=== PATIENT | female | born 1935 | race Caucasian/White ===

== ENCOUNTER → 2018-01-29 | Outpatient (CLI) | payer OTHER ==
[~2018-01-29] MED LIST: ASPI81CH PO; CITRICAL; GINKGO PO; LISHYD1012 PO; POTCHL20ER PO
== END ==
LOC: LAB SHORT 14:18 → LAB SRC 14:18
DX: R31.9 Hematuria, unspecified (principal)
CPT/HCPCS: 87086

== ENCOUNTER 2018-11-23 10:43 | Inpatient (IN) | payer OTHER ==
[~2018-11-23] VITALS: Ht 152.4 cm; Wt 74.7 kg
[2018-11-23] MEDS ORDERED: Prinivil10 MG PO (13:33)
[2018-11-23] MEDS ORDERED: MEMA10 PO (13:33)
[2018-11-23 13:51] LABS: BASOPHILS ABSOLUTE AUTO 0.02 K/mm3 (0.00-0.23); BASOPHILS PERCENT AUTO 0 % (0-2); EOSINOPHILS ABSOLUTE AUTO 0.03 K/mm3 (0.00-0.68); EOSINOPHILS PERCENT AUTO 0 % (0-6); Hematocrit 42.5 % (33.0-51.0); IMMATURE GRAN ABSOLUTE AUTO 0.06 K/mm3 (0.00-0.10); IMMATURE GRAN PERCENT AUTO 0 % (0-1); LYMPHOCYTES ABSOLUTE AUTO 1.09 K/mm3 (0.84-5.20); LYMPHOCYTES PERCENT AUTO 8 % (21-46); MONOCYTES ABSOLUTE AUTO 0.63 K/mm3 (0.16-1.47); MONOCYTES PERCENT AUTO 5 % (4-13); Mean Corpuscular HGB Conc 32.9 g/dL (31.5-36.5); Mean Corpuscular Volume 94 fL (80-100); Mean Platelet Volume 9.8 fL (9.1-12.4); NEUTROPHILS ABSOLUTE AUTO 11.66 K/mm3 (1.96-9.15); NEUTROPHILS PERCENT AUTO 87 % (41-73); Platelet Count 263 K/mm3 (150-400); RDW Coefficient Variation 12.4 % (11.7-14.2); RDW Standard Deviation 43.3 fL (35.1-46.3); Red Blood Cell Count 4.51 M/mm3 (3.80-5.20); White Blood Cell Count 13.49 K/mm3 (4.00-11.30)
[2018-11-23 14:42] LABS: Source, Urine Voided
[2018-11-23 14:45] LABS: Bilirubin, Urine Neg (Neg); Blood, Urine Neg (Neg); Glucose Qualitative, Urine Neg (Neg); Ketones, Urine 2+ (Neg); Leukocyte Esterase, Urine Neg (Neg); Nitrite, Urine Neg (Neg); Protein, Urine Neg (Neg); Specific Gravity, Urine 1.015 (1.003-1.022); Urobilinogen, Urine NORM (Normal); pH, Urine 6.5 (5.0-8.0)
[2018-11-23 14:50] LABS: Appearance, Urine Clear (Clear); Color, Urine Yellow (P-Yellow)
[2018-11-23 16:18] LABS: International Normalized Ratio 0.97; Prothrombin Time Results 10.3 Sec (9.7-11.5)
[2018-11-23 16:25] LABS: Alanine Aminotransfer (ALT/SGP 21 U/L (12-78); Albumin, Blood 3.6 g/dL (3.4-5.0); Albumin/Globulin Ratio 1.1 (0.8-1.8); Alk Phos 62 U/L (50-136); Anion Gap 8 mmol/L (6-16); Aspartate Aminotrans (AST/SGOT 26 U/L (12-37); Bilirubin, Total 0.9 mg/dL (0.1-1.0); Blood Urea Nitrogen 16 mg/dL (8-24); Bun/Creatinine Ratio 23.6 (12.0-20.0); CO2, Blood 25 mmol/L (21-32); Calcium, Blood 8.2 mg/dL (8.5-10.1); Chloride, Blood 101 mmol/L (98-108); Creatinine, Blood 0.68 mg/dL (0.40-1.00); Globulin, Blood 3.4 g/dL (2.2-4.0); Glomerular Filtration Rate >60 (60-); Glucose, Blood 87 mg/dL (70-99); Potassium, Blood 4.2 mmol/L (3.5-5.5); Sodium, Blood 134 mmol/L (136-145)
--- NOTE | 2018-11-23 17:16 | NUR ---
PT ARRIVED TO THE ROOM AT APPROXIMATELY 1700. PT ALERT AND ORIENTED. FAMILY AT THE BEDSIDE. PT REPORTS PAIN IS MANAGED. ZOFRAN GIVEN FOR NAUSEA BY CLARITA ARITA. WILL CONTINUE TO MONITOR.
--- NOTE | 2018-11-23 19:32 | NUR ---
SHIFT SUMMARY PT REPORTS PAIN IS TOLERABLE WHILE AT REST. PT ALERT AND ORIENTED. FAMILY PRESENT AT BEDSIDE. VSS. REPORT GIVEN TO ESTELLA ARITA.
[2018-11-24 04:24] LABS: BASOPHILS ABSOLUTE AUTO 0.05 K/mm3 (0.00-0.23); BASOPHILS PERCENT AUTO 0 % (0-2); EOSINOPHILS ABSOLUTE AUTO 0.28 K/mm3 (0.00-0.68); EOSINOPHILS PERCENT AUTO 3 % (0-6); Hematocrit 40.6 % (33.0-51.0); Hemoglobin 13.7 g/dL (11.5-16.0); IMMATURE GRAN ABSOLUTE AUTO 0.02 K/mm3 (0.00-0.10); IMMATURE GRAN PERCENT AUTO 0 % (0-1); LYMPHOCYTES ABSOLUTE AUTO 1.04 K/mm3 (0.84-5.20); LYMPHOCYTES PERCENT AUTO 9 % (21-46); MONOCYTES ABSOLUTE AUTO 0.78 K/mm3 (0.16-1.47); MONOCYTES PERCENT AUTO 7 % (4-13); Mean Corpuscular HGB 30.7 pg (26.0-34.0); Mean Corpuscular HGB Conc 33.7 g/dL (31.5-36.5); Mean Platelet Volume 9.4 fL (9.1-12.4); NEUTROPHILS ABSOLUTE AUTO 9.07 K/mm3 (1.96-9.15); NEUTROPHILS PERCENT AUTO 81 % (41-73); Platelet Count 239 K/mm3 (150-400); RDW Coefficient Variation 12.5 % (11.7-14.2); RDW Standard Deviation 41.1 fL (35.1-46.3); Red Blood Cell Count 4.46 M/mm3 (3.80-5.20); White Blood Cell Count 11.24 K/mm3 (4.00-11.30)
[2018-11-24 04:32] LABS: Mean Corpuscular Volume 91 fL (80-100)
[2018-11-24 04:47] LABS: Anion Gap 6 mmol/L (6-16); Blood Urea Nitrogen 12 mg/dL (8-24); Bun/Creatinine Ratio 17.3 (12.0-20.0); CO2, Blood 26 mmol/L (21-32); Calcium, Blood 7.8 mg/dL (8.5-10.1); Chloride, Blood 102 mmol/L (98-108); Creatinine, Blood 0.69 mg/dL (0.40-1.00); Glomerular Filtration Rate >60 (60-); Glucose, Blood 102 mg/dL (70-99); Sodium, Blood 134 mmol/L (136-145)
--- NOTE | 2018-11-24 06:18 | NUR ---
LYING IN SEMI FOWLERS WITH EYES CLOSED. HAS RESTED WELL SINCE ADMIT. HAS BEEN TREATED FOR PAIN X3 THIS SHIFT. RESPIRATIONS EVEN AND UNLABORED AT THIS TIME. DENIES PAIN, DISCOMFORT, OR FURTHER NEEDS AT THIS TIME. SAFETY MEASURES IN PLACE. WILL GIVE HAND OFF TO ONCOMING SHIFT USING SBAR.
--- NOTE | 2018-11-24 09:48 | NUR ---
"CUTTING AND CREASING PRESS OPERATOR | PRE-OP IN ROOM VSS. A/O, to person, place, partial situation (knew she was having surgery, not sure what part). Family here at bedside. Blood consent complete. Surgery consent and pink sheet in chart. SCDs on. CASSIUS hose on. Patient denies dentures, hearing aides, contacts. IV runs to gravity without issue. Vanco running per order. Blue hat on. Consent wristband placed, verified procedure with family. Plan and H/P from Dr. Sanders in [facility]. Dr. Mariscal spoke with patient and consented the patient (via family member and verbal confirmation with patient). Clinda and TXA on IV pole ready for OR team use. Marry ARITA saw patient, patient taken to OR."
--- NOTE | 2018-11-24 11:05 | NUR ---
11/24/18 1105 Hiren Redmond PT HAD PEARSON CATH IN PLACE PRIOR TO ARRIVAL TO OR.
--- NOTE | 2018-11-24 14:15 | NUR ---
PT ARRIVED BACK TO HER ROOM FROM PACU, AT APPROXIMATELY 1255. PT SLEEPING BUT AWAKENS WHEN SPOKEN TO. VSS. WILL CONTINUE TO MONITOR.
--- NOTE | 2018-11-24 17:53 | NUR ---
SHIFT SUMMARY PT HAD SURGERY TODAY WITH DR. WEAVER. PT HAS BEEN DROWSY POST OP AND HAS NAPPED. PT DENIES PAIN SINCE SURGERY. SHE IS ABLE TO ROLL/REPOSITION WITH 1 PERSON ASSIST. PT WORKED WITH THERAPY AND WAS ABLE TO SIT AT THE EDGE OF THE BED. CATHETER REMOVED IN PACU, PT HAS CLEAN ATTENDS IN PLACE, BLADDER SCAN SHOWED 217ML OF URINE IN HER BLADDER. PT REMAINS MILDLY CONFUSED, SHE IS ORIENTED X3. FAMILY HAS BEEN AT THE BEDSIDE POST-OP. VSS. WILL MONITOR UNTIL REPORT TO ONCOMING RN.
[2018-11-25 04:54] LABS: BASOPHILS ABSOLUTE AUTO 0.02 K/mm3 (0.00-0.23); BASOPHILS PERCENT AUTO 0 % (0-2); EOSINOPHILS ABSOLUTE AUTO 0.13 K/mm3 (0.00-0.68); EOSINOPHILS PERCENT AUTO 1 % (0-6); Hematocrit 32.3 % (33.0-51.0); Hemoglobin 10.9 g/dL (11.5-16.0); IMMATURE GRAN ABSOLUTE AUTO 0.07 K/mm3 (0.00-0.10); IMMATURE GRAN PERCENT AUTO 1 % (0-1); LYMPHOCYTES ABSOLUTE AUTO 0.74 K/mm3 (0.84-5.20); LYMPHOCYTES PERCENT AUTO 6 % (21-46); MONOCYTES ABSOLUTE AUTO 1.13 K/mm3 (0.16-1.47); MONOCYTES PERCENT AUTO 8 % (4-13); Mean Corpuscular HGB 30.9 pg (26.0-34.0); Mean Corpuscular HGB Conc 33.7 g/dL (31.5-36.5); Mean Corpuscular Volume 92 fL (80-100); Mean Platelet Volume 9.9 fL (9.1-12.4); NEUTROPHILS PERCENT AUTO 85 % (41-73); Platelet Count 194 K/mm3 (150-400); RDW Coefficient Variation 12.8 % (11.7-14.2); RDW Standard Deviation 42.3 fL (35.1-46.3); Red Blood Cell Count 3.53 M/mm3 (3.80-5.20); White Blood Cell Count 13.39 K/mm3 (4.00-11.30)
[2018-11-25 05:12] LABS: Anion Gap 6 mmol/L (6-16); Blood Urea Nitrogen 18 mg/dL (8-24); Bun/Creatinine Ratio 24.6 (12.0-20.0); CO2, Blood 24 mmol/L (21-32); Chloride, Blood 102 mmol/L (98-108); Creatinine, Blood 0.73 mg/dL (0.40-1.00); Glomerular Filtration Rate >60 (60-); Glucose, Blood 134 mg/dL (70-99); Magnesium, Blood 1.9 mg/dL (1.6-2.4); Potassium, Blood 4.6 mmol/L (3.5-5.5); Sodium, Blood 132 mmol/L (136-145)
--- NOTE | 2018-11-25 05:51 | NUR ---
SHIFT SUMMARY SITTING IN CHAIR AT BEDSIDE WITH EYES CLOSED. GOT OUT OF BED TO BSC TO URINATE WITH MAX ASSIST. 300ML OUTOUT NOTED. LIEN LIFT USED TO TRANSFER TO [facility]. RESPIRATIONS EVEN AND UNLABORED AT THIS TIME. DENIES PAIN, DISCOMFORT, OR FURTHER NEEDS AT THIS TIME. SAFETY MEASURES IN PLACE. WILL GIVE HAND OFF TO ONCOMING SHIFT USING SBAR.
--- NOTE | 2018-11-25 17:56 | NUR ---
SHIFT SUMMARY PT HAS DENIED PAIN T/O SHIFT. REYEL HAS HAD UNCHANGED AMOUNT OF DRAINAGE TODAY. SAT UP IN RECLINING CHAIR FOR MOST OF MY SHIFT WITH SEVERAL TRANSFERS TO THE BSC, MAX 2 PERSON ASSIST.
--- NOTE | 2018-11-26 04:54 | NUR ---
SHIFT SUMMARY: PT ALERT AND ORIENTED TO SELF AND EVENT. PT APPEARS TO BE MORE CONFUSED AT NIGHT. BP ELEVATED T/O SHIFT. GIVEN NORCO AND TYLENOL FOR PAIN. AQUACEL TO LEFT HIP CDI WITH SMALL AMOUNT OF DRAINAGE. PT USING CALL LIGHT APPROPRIATLY TO USE BEDPAN. VOIDING SMALL AMOUNTS EACH TIME. BLADDER SCAN SHOWED >600. PT STRAIGHT CATHED WITH 900 ML OUT. PT ATTEMPTED TO GET OUT OF BED ONCE. BED ALARM ON FOR SAFETY. SALINE LOCKED AND MICK PO.
--- NOTE | 2018-11-26 10:58 | NUR ---
INITIAL PALLIATIVE CARE VISIT AND REVIEW DONE THIS AM, per request to address AD/POLST and advanced care planning. At the time of my first attempt, pt was working with OT. Per OT, pt requires much cueing and hands on guidance or direction to complete OT tasks and ADL's. Pt is able to say who she is, that she had a fall and that she is in the hospital. Per OT, she is not always able to be that clear. Both OT and I agree that a conversation with pt regarding advanced care planning or code status would not be appropriate due to her dementia. Pt appears to have her s/s well managed and is not exhibiting nonverbal painful behaviours or verbally reporting them. When I returned to visit pt & further assess, she was asleep in her reclined chair. Pt has numerous family names and numbers on her white board. Case conferenced with pt's RN re: current status and identifying pt's surrogate decision maker, who is daughter, Frida Pendleton [phone]. t/c to Frida, who had already been in to visit this am and had left. She reports that her mom is due to be transfered to [facility] around 2 pm today for a rehab stay after her L hip fx and hemiarthroplasty 2-3 days ago. Pt is 83 year old female, who was an ambulator prior to surgery and PMH most significant for her advanced dementia. I explained the purpose of my call and inquired if Frida was open to conversation about advanced care planning and completing a POLST with me for her mom. We spoke for approx 15-20 minutes and she was very receptive and appreciative of the conversation and completing a POLST prior to her mom's transfer today. Frida and family wish for pt to have CPR if her heart stops, along with medication and shocks if indicated but do not want her intubated. She wants a defined trial of feeding by tube if recommended with the trial period to be determined at the time of need. POLST reviewed and completed in detail with Frida and Dr trinh obtained. Code status orders changed to reflect POA's instructions/requests. Copy of POLST faxed to medical records for scanning into pt's EMR and original placed with paperwork to be transferred with pt to [facility]. Instructed oswaldo to keep original with pt and also sent along a book she expressed interest in re: advanced care planning, "Hard Choices for [place] People". Discussed considering, in detail burden vs benefit of advanced medical interventions as we age and become more frail and that resuscitation cannot restore function/health that was not present at the time of event. Oswaldo verbalized understanding and seemed open to ongoing conversation as her mom's dementia and advanced age progress. and did not wake to verbal stimuli.
--- NOTE | 2018-11-26 15:04 | NUR ---
REPORT CALLED TO [facility]. PT SITING UP IN CHAIR. CONTINUES TO DENY PAIN. ASHLEY SAHU. EXTRA AQUACEL TO BE SENT TO SNF. AWAITING TRANSPORT.
== END 2018-11-26 16:11 | DRG 470 ==
LOC: ER 10:43 → SURS 14:22
PROVIDERS: Emergency Medicine; Orthopaedic Surgery; ADMIT Internal Medicine
PROC: 0SRB0JZ Replacement of Left Hip Joint with Synthetic Substitute, Open Approach (ICD-10-PCS; principal; 2018-11-23)
DX: S72.092A Other fracture of head and neck of left femur, initial encounter for closed fracture (principal); M97.02XA Periprosthetic fracture around internal prosthetic left hip joint, initial encounter; W19.XXXA Unspecified fall, initial encounter; F03.90 Unspecified dementia, unspecified severity, without behavioral disturbance, psychotic disturbance, mood disturbance, and anxiety; E11.8 Type 2 diabetes mellitus with unspecified complications
CPT/HCPCS: 36415; 51702; 71045; 72170; 73502; 80048; 80053; 81003; 82330; 82652; 83735; 85025; 85610; 88305; 88311; 93005; 93010; 94762; 96361; 96374; 96375; 96376; 97110; 97161; 97166; 97530; 97535; 99285-25; A9270-GY; C1776; J0171; J0360; J0735; J1100; J1650; J1885; J1940; J2370; J2405; J2704; J2795; J3010; J3370; J7030; J7120

== ENCOUNTER 2018-11-28 18:46 | Observation (INO) | payer OTHER ==
[~2018-11-28] VITALS: Ht 162.6 cm; Wt 72.1 kg
[~2018-11-28 18:46] MED LIST changes: +MEMA10 PO; +Prinivil10 MG PO
[2018-11-28] MEDS ORDERED: HYDR1TAB94 PO (19:24)
[2018-11-28 20:01] LABS: BASOPHILS ABSOLUTE AUTO 0.06 K/mm3 (0.00-0.23); BASOPHILS PERCENT AUTO 1 % (0-2); EOSINOPHILS PERCENT AUTO 2 % (0-6); Hematocrit 34.4 % (33.0-51.0); Hemoglobin 11.7 g/dL (11.5-16.0); IMMATURE GRAN ABSOLUTE AUTO 0.06 K/mm3 (0.00-0.10); IMMATURE GRAN PERCENT AUTO 1 % (0-1); LYMPHOCYTES ABSOLUTE AUTO 1.46 K/mm3 (0.84-5.20); LYMPHOCYTES PERCENT AUTO 14 % (21-46); MONOCYTES ABSOLUTE AUTO 1.22 K/mm3 (0.16-1.47); MONOCYTES PERCENT AUTO 11 % (4-13); Mean Corpuscular HGB 30.4 pg (26.0-34.0); Mean Platelet Volume 9.8 fL (9.1-12.4); NEUTROPHILS ABSOLUTE AUTO 7.71 K/mm3 (1.96-9.15); NEUTROPHILS PERCENT AUTO 72 % (41-73); Platelet Count 287 K/mm3 (150-400); RDW Coefficient Variation 12.5 % (11.7-14.2); RDW Standard Deviation 40.6 fL (35.1-46.3); Red Blood Cell Count 3.85 M/mm3 (3.80-5.20); White Blood Cell Count 10.71 K/mm3 (4.00-11.30)
[2018-11-28 20:02] LABS: Mean Corpuscular Volume 89 fL (80-100)
[2018-11-28] MEDS ORDERED: DOCU100 PO (20:02)
[2018-11-28] MEDS ORDERED: ACETAMINOPHEN650 MG PO (20:02)
[2018-11-28] MEDS ORDERED: MIRALAX17 GM PO (20:04)
[2018-11-28] MEDS ORDERED: ONDA4 PO (20:05)
[2018-11-28] MEDS ORDERED: CALCIUM 500 +1 EAC3 PO (20:07)
[2018-11-28 20:13] LABS: Anion Gap 6 mmol/L (6-16); Blood Urea Nitrogen 22 mg/dL (8-24); CO2, Blood 27 mmol/L (21-32); Calcium, Blood 8.3 mg/dL (8.5-10.1); Chloride, Blood 99 mmol/L (98-108); Creatinine, Blood 0.63 mg/dL (0.40-1.00); Glomerular Filtration Rate >60 (60-); Glucose, Blood 114 mg/dL (70-99); Potassium, Blood 4.1 mmol/L (3.5-5.5); Sodium, Blood 132 mmol/L (136-145)
[2018-11-28 20:24] LABS: International Normalized Ratio 0.92; Prothrombin Time Results 9.8 Sec (9.7-11.5)
--- NOTE | 2018-11-29 02:22 | NUR ---
ENTERED PT'S ROOM AND NOTICED THAT PT'S IV WAS PULLED OUT AND ON THE FLOOR. ASKED THE PT WHAT HAPPENED AND SHE RESPONDED WITH "I DONT REALLY KNOW. I'M A LITTE FUZZY ABOUT WHERE I AM OR WHY I'M HERE". THIS RN EXPLAINED TO THE PT THAT SHE WAS IN THE HOSPITAL IN [place] BECAUSE SHE HAD A STROKE. PT STATES SHE WASN'T AWARE OF THAT. PT DID ASK IF HER DAUGHTERS, WHO WERE WITH HER WHEN SHE ARRIVED WERE STILL HERE. PT STILL SPEAKING CLEARLY, NO FACIAL DROOP NOTED, EQUAL MANAGER MED SURG STRENGTH. SBP 190 ON L ARM WHICH IS CONSISTENT WITH WHAT SHE HAS BEEN SINCE ARRIVAL. SBP ON R ARM WAS 108. NOTIFIED DR BLANC ABOUT CHANGE IN MENTATION AND DIFFERENCE BETWEEN SBP ON HER ARMS. PER DR BLANC, CONTINUE TO MONITOR PT AT THIS POINT. NO CHANGES PER MORNING SHOW NEWSCAST PRODUCER.
--- NOTE | 2018-11-29 04:57 | NUR ---
STRATEGIC PARTNER DEVELOPMENT MANAGER SUMMARY NEW ADMIT FROM THE ED TONIGHT. PT ADMITTED FOR ACUTE CVA. PT WAS RECENTLY DISCHARGED AFTER HAVING HER L HIP REPAIRED. WHEN PT ARRIVED TO FLOOR, SHE WAS AAOX3, PLEASANT, AND ANSWERING QUESTIONS APPROPRIATELY. NO NEURO DEFICITS NOTED BY THIS RN. LATER ON IN THE NIGHT PT BECAME MORE CONFUSED AFTER WAKING UP. WAS UNSURE OF WHERE SHE WAS OR HOW SHE GOT HERE. SEE PREVIOUS NOTE FOR MORE DETAILS. AFTER 10-15 MINUTES PT STATED SHE WAS STARTING TO REMEMBER WHAT BROUGHT HER TO THE HOSPITAL AND WAS BACK TO BASELINE WHEN SHE FIRST ARRIVED. PT SEEMS TO BE A LITTLE CONFUSED RIGHT AFTER WAKING UP BUT IMPROVED AFTER A FEW MINUTES. SBP HAVE BEEN 170-190'S SBP, PERMISSIVE HTN ALLOWED UP TO 220. PT IS NPO DUE TO SOME SWALLOWING ISSUES FROM A PREVIOUS CVA BUT HAS BEEN ABLE TO TAKE ORAL MEDS WITH WATER WITHOUT ISSUE. NSR IN THE 60-70'S PER SOLAR PHOTOVOLTAIC INSTALLER. VSS, WILL CONTINUE TO MONITOR.
[2018-11-29 05:23] LABS: BASOPHILS ABSOLUTE AUTO 0.05 K/mm3 (0.00-0.23); BASOPHILS PERCENT AUTO 1 % (0-2); EOSINOPHILS PERCENT AUTO 3 % (0-6); Hematocrit 31.6 % (33.0-51.0); Hemoglobin 10.8 g/dL (11.5-16.0); IMMATURE GRAN ABSOLUTE AUTO 0.06 K/mm3 (0.00-0.10); IMMATURE GRAN PERCENT AUTO 1 % (0-1); LYMPHOCYTES ABSOLUTE AUTO 1.52 K/mm3 (0.84-5.20); LYMPHOCYTES PERCENT AUTO 17 % (21-46); MONOCYTES ABSOLUTE AUTO 1.13 K/mm3 (0.16-1.47); MONOCYTES PERCENT AUTO 13 % (4-13); Mean Corpuscular HGB 31.2 pg (26.0-34.0); Mean Corpuscular HGB Conc 34.2 g/dL (31.5-36.5); Mean Corpuscular Volume 91 fL (80-100); Mean Platelet Volume 9.8 fL (9.1-12.4); NEUTROPHILS ABSOLUTE AUTO 5.66 K/mm3 (1.96-9.15); NEUTROPHILS PERCENT AUTO 65 % (41-73); Platelet Count 269 K/mm3 (150-400); RDW Coefficient Variation 12.4 % (11.7-14.2); RDW Standard Deviation 41.3 fL (35.1-46.3); Red Blood Cell Count 3.46 M/mm3 (3.80-5.20); White Blood Cell Count 8.72 K/mm3 (4.00-11.30)
[2018-11-29 05:40] LABS: Anion Gap 7 mmol/L (6-16); Blood Urea Nitrogen 18 mg/dL (8-24); Bun/Creatinine Ratio 26.7 (12.0-20.0); CO2, Blood 27 mmol/L (21-32); Calcium, Blood 8.1 mg/dL (8.5-10.1); Chloride, Blood 100 mmol/L (98-108); Creatinine, Blood 0.67 mg/dL (0.40-1.00); Glomerular Filtration Rate >60 (60-); Glucose, Blood 93 mg/dL (70-99); Potassium, Blood 3.9 mmol/L (3.5-5.5); Sodium, Blood 134 mmol/L (136-145)
--- NOTE | 2018-11-29 14:17 | NUR ---
PT ASSISTED TO BSC, 2 PERSON ASSIST. PT IS VERY WEAK, LEFT MORE THAN RIGHT. PT WITH LEFT HIP FRACTURE APPROX 1 WEEK AGO. DRESSING IS C/D/I.
[2018-11-29] MEDS ORDERED: ASPI81CH PO (15:45)
[2018-11-29] MEDS ORDERED: ATOR40TA PO (15:46)
[2018-11-29] MEDS ORDERED: CLOP75 PO (15:47)
--- NOTE | 2018-11-29 17:03 | NUR ---
ATTEMPTED TO CALL REPORT TO APPLE ARITA AT [place] [id number]. APPLE DECLINED TO TAKE REPORT BOTH TIMES, INSTEAD STATING THAT HE WOULD CALL ME BACK. WAITING FOR CALL AT THIS TIME.
--- NOTE | 2018-11-29 17:11 | NUR ---
REPORT TO [facility], [facility] CHIU RN RETURNED MY CALL AND RECEIVED REPORT. QUESTONS/CONCERNS ANSWERED. PT SCHEDULED TO TRANSPORT AT 1700, SEEM TO BE RUNNING LATE
--- NOTE | 2018-11-29 17:25 | NUR ---
PT DISCHARGED TO REHAB VIA [facility]
== END 2018-11-29 17:21 ==
LOC: ER 18:46 → MEDS 18:47 → ER 20:32 → MEDS 20:32
PROVIDERS: Emergency Medicine; Nurse Practitioner Acute Care; ADMIT Internal Medicine
DX: I63.9 Cerebral infarction, unspecified (principal); I69.352 Hemiplegia and hemiparesis following cerebral infarction affecting left dominant side; I69.353 Hemiplegia and hemiparesis following cerebral infarction affecting right non-dominant side; G93.89 Other specified disorders of brain; I10 Essential (primary) hypertension; E78.5 Hyperlipidemia, unspecified; F03.90 Unspecified dementia, unspecified severity, without behavioral disturbance, psychotic disturbance, mood disturbance, and anxiety; Z86.73 Personal history of transient ischemic attack (TIA), and cerebral infarction without residual deficits; Z98.890 Other specified postprocedural states; Z79.899 Other long term (current) drug therapy; Z88.5 Allergy status to narcotic agent; Z88.8 Allergy status to other drugs, medicaments and biological substances; Z88.1 Allergy status to other antibiotic agents; Z88.0 Allergy status to penicillin; Z88.2 Allergy status to sulfonamides; Z91.013 Allergy to seafood
CPT/HCPCS: 36415; 70496; 70498; 70551; 71045; 80048; 82330; 83735; 85025; 85610; 92610; 93005; 93010; 93306; 93970; 97163; 97166; 97530; 99285-25; A9270; G0378; J0360; J1650; J7030; Q9967

== ENCOUNTER 2018-12-07 22:19 | Observation (INO) | payer OTHER ==
[~2018-12-07] VITALS: Ht 162.6 cm; Wt 74.7 kg
[~2018-12-07 22:19] MED LIST changes: +ACETAMINOPHEN650 MG PO; +ATOR40TA PO; +CALCIUM 500 +1 EAC3 PO; +CLOP75 PO; +DOCU100 PO; +HYDR1TAB94 PO; +MIRALAX17 GM PO; +ONDA4 PO
[2018-12-07 22:50] LABS: BASOPHILS ABSOLUTE AUTO 0.06 K/mm3 (0.00-0.23); BASOPHILS PERCENT AUTO 1 % (0-2); EOSINOPHILS ABSOLUTE AUTO 0.44 K/mm3 (0.00-0.68); EOSINOPHILS PERCENT AUTO 4 % (0-6); Hematocrit 35.1 % (33.0-51.0); Hemoglobin 11.8 g/dL (11.5-16.0); IMMATURE GRAN ABSOLUTE AUTO 0.05 K/mm3 (0.00-0.10); IMMATURE GRAN PERCENT AUTO 1 % (0-1); LYMPHOCYTES ABSOLUTE AUTO 1.85 K/mm3 (0.84-5.20); LYMPHOCYTES PERCENT AUTO 18 % (21-46); MONOCYTES ABSOLUTE AUTO 0.81 K/mm3 (0.16-1.47); MONOCYTES PERCENT AUTO 8 % (4-13); Mean Corpuscular HGB 31.3 pg (26.0-34.0); Mean Corpuscular HGB Conc 33.6 g/dL (31.5-36.5); Mean Corpuscular Volume 93 fL (80-100); Mean Platelet Volume 8.9 fL (9.1-12.4); NEUTROPHILS ABSOLUTE AUTO 7.15 K/mm3 (1.96-9.15); NEUTROPHILS PERCENT AUTO 69 % (41-73); Platelet Count 494 K/mm3 (150-400); RDW Coefficient Variation 13.1 % (11.7-14.2); RDW Standard Deviation 44.6 fL (35.1-46.3); Red Blood Cell Count 3.77 M/mm3 (3.80-5.20); White Blood Cell Count 10.36 K/mm3 (4.00-11.30)
[2018-12-07] MEDS ORDERED: HYDRA25 PO (22:52)
[2018-12-07] MEDS ORDERED: ENOX40I SC (22:55)
[2018-12-07 23:06] LABS: International Normalized Ratio 0.96; Prothrombin Time Results 10.2 Sec (9.7-11.5)
[2018-12-07 23:13] LABS: Alanine Aminotransfer (ALT/SGP 33 U/L (12-78); Albumin, Blood 2.8 g/dL (3.4-5.0); Albumin/Globulin Ratio 0.7 (0.8-1.8); Alk Phos 95 U/L (50-136); Anion Gap 7 mmol/L (6-16); Aspartate Aminotrans (AST/SGOT 29 U/L (12-37); Bilirubin, Total 0.3 mg/dL (0.1-1.0); Blood Urea Nitrogen 24 mg/dL (8-24); Bun/Creatinine Ratio 31.2 (12.0-20.0); CO2, Blood 28 mmol/L (21-32); Calcium, Blood 8.4 mg/dL (8.5-10.1); Chloride, Blood 103 mmol/L (98-108); Creatinine, Blood 0.77 mg/dL (0.40-1.00); Globulin, Blood 3.8 g/dL (2.2-4.0); Glomerular Filtration Rate >60 (60-); Glucose, Blood 108 mg/dL (70-99); Potassium, Blood 4.2 mmol/L (3.5-5.5); Sodium, Blood 138 mmol/L (136-145); Total Protein, Blood 6.6 g/dL (6.4-8.2)
[2018-12-08 04:49] LABS: Source, Urine Clean Catch
[2018-12-08 04:52] LABS: Appearance, Urine Cloudy (Clear); Bilirubin, Urine Neg (Neg); Blood, Urine 2+ (Neg); Color, Urine Yellow (P-Yellow); Glucose Qualitative, Urine Neg (Neg); Ketones, Urine Neg (Neg); Leukocyte Esterase, Urine 3+ (Neg); Nitrite, Urine Neg (Neg); Protein, Urine 1+ (Neg); Specific Gravity, Urine 1.015 (1.003-1.022); Urobilinogen, Urine NORM (Normal)
[2018-12-08 04:58] LABS: Bacteria Mod /hpf; Squamous Epithelial Cells Mod /hpf (Few)
[2018-12-08 04:59] LABS: Transitional Epithelial Cells Few /hpf (0-Rare)
[2018-12-08 05:04] LABS: U Amphetamine Screen Not Detected; U Barbituate Screen Not Detected; U Benzodiazapine Screen Not Detected; U Buprenorphine Screen Not Detected; U Cannabinoids Screen Not Detected; U Cocaine Screen Not Detected; U Methadone Screen Not Detected; U Methamphetamine Screen Not Detected; U Opiates Screen Not Detected; U Oxycodone Screen Not Detected; U Phencyclidine Screen Not Detected; U Propoxyphene Screen Not Detected
[2018-12-08 06:10] LABS: Hemoglobin 11.2 g/dL (11.5-16.0); Mean Corpuscular HGB 30.4 pg (26.0-34.0); Mean Corpuscular HGB Conc 32.9 g/dL (31.5-36.5); Mean Corpuscular Volume 92 fL (80-100); Mean Platelet Volume 9.2 fL (9.1-12.4); Platelet Count 485 K/mm3 (150-400); RDW Standard Deviation 44.2 fL (35.1-46.3); Red Blood Cell Count 3.69 M/mm3 (3.80-5.20); White Blood Cell Count 9.34 K/mm3 (4.00-11.30)
[2018-12-08 06:59] LABS: Alanine Aminotransfer (ALT/SGP 34 U/L (12-78); Albumin, Blood 2.7 g/dL (3.4-5.0); Albumin/Globulin Ratio 0.8 (0.8-1.8); Alk Phos 90 U/L (50-136); Anion Gap 7 mmol/L (6-16); Aspartate Aminotrans (AST/SGOT 25 U/L (12-37); Bilirubin, Total 0.3 mg/dL (0.1-1.0); Blood Urea Nitrogen 23 mg/dL (8-24); Bun/Creatinine Ratio 32.3 (12.0-20.0); CO2, Blood 26 mmol/L (21-32); Calcium, Blood 8.1 mg/dL (8.5-10.1); Chloride, Blood 105 mmol/L (98-108); Creatinine, Blood 0.71 mg/dL (0.40-1.00); Globulin, Blood 3.6 g/dL (2.2-4.0); Glomerular Filtration Rate >60 (60-); Glucose, Blood 92 mg/dL (70-99); Potassium, Blood 4.1 mmol/L (3.5-5.5); Sodium, Blood 138 mmol/L (136-145); Total Protein, Blood 6.3 g/dL (6.4-8.2)
--- NOTE | 2018-12-08 07:15 | NUR ---
arrived from ed, surgical site cdi, no s/sx infection arround sofia, call light in reach, room air, saline locked and infusing with no s/sx of infection or infiltration, slight weakness on l side but no facial droop noted, bsr shared with oncoming day staff
--- NOTE | 2018-12-08 16:31 | NUR ---
SHIFT SUMMARY IV IN RT HAND WAS ACCIDENTLY PULLED OUT BY THE PT. IV IN LEFT FOREARM IS STILL FUNCTIONAL W/75 ML/HR NS INFUSING. TELE SHOWS SINUS RHYTHM @ 73 BPM W/BBB. PT EVALUATED TODAY. SHE IS NOW A STANDBY ASSIST W/FWW. I TOOK HER TO THE BATHROOM TODAY. STILL STATES NUMBNESS TO LEFT ARM. FACIAL NUMBNESS HAS RESOLVED. DENIES PAIN.
--- NOTE | 2018-12-09 04:26 | NUR ---
SHIFT SUMMARY A/O, ABLE TO MAKE NEEDS KNOWN. FORGETFUL AT TIMES. COOPERATIVE WITH CARE. CALLS AND ANSWERS QUESTIONS APPROPRIATELY. C/O PAIN TO L HIP AND R ARM; MEDICATED PER EMAR. UP TO RESTROOM X3 /c FWW AND 1P ASSIST. STILL HAVING DIFFICULTY MOVING LLE, BUT STATES NO LONGER HAVING ANY NUMBNESS. TELE RUNNING @ NSR /c BBB IN 70S. HOWEVER, DID NOT REST MUCH THROUGHOUT SHIFT. NO ACUTE CHANGES OVERNIGHT. BED IN LOWEST POSITION. CALL LIGHT AND BELONGINGS WITHIN REACH. WCTM. REPORT TO ONCOMING RN.
[2018-12-09] MEDS ORDERED: LEVFLO500 PO (11:50)
--- NOTE | 2018-12-09 15:22 | NUR ---
discharge/transfer PT STATE FACIAL NUMBNESS RESOLVED, STATE SOME TINGLING L ARM, STATE GOOD FEELING LLE. DX TIA, HX CVA. SHE IS S/P L HIP FX SURG, DRSG CHANGED BY NOC RN JULIETA INTACT, NO S/S INFECTION. PT UP W 1 ASSIST FWW/GB, SHE STATE LLE TENDER HOWEVER NOT PAINFUL. MEDICINE WORKER ASSIST HER WITH SHOWER. PT/OT IN FOR TX. DR LISA IN TO SEE HER STATE READY TO RETURN TO SNF. FAMILY NOTIFIED. IV D/C INTACT. TELEPHONE SALES AGENT ARRANGE TRANSFER TO [facility]. REPORT CALLED TO UVNR RN. FAMILY IN TO GATHER BELONGINGS, ACCOMPANY PT TO FACILITY. [facility] PROVIDE TRANSPORTATION. PT STATE READY FOR D/C, PLEASANT/APPRECIATIVE.
== END 2018-12-09 14:00 ==
LOC: ER 22:19 → MEDS 22:20 → ENPENDDIS 12-09 11:41 → MEDS 12-09 14:00
PROVIDERS: Emergency Medicine; ADMIT Internal Medicine
DX: G45.9 Transient cerebral ischemic attack, unspecified (principal); I63.9 Cerebral infarction, unspecified; E78.5 Hyperlipidemia, unspecified; I10 Essential (primary) hypertension; F03.90 Unspecified dementia, unspecified severity, without behavioral disturbance, psychotic disturbance, mood disturbance, and anxiety; N39.0 Urinary tract infection, site not specified; B95.1 Streptococcus, group B, as the cause of diseases classified elsewhere; Z79.02 Long term (current) use of antithrombotics/antiplatelets; Z79.82 Long term (current) use of aspirin; Z79.899 Other long term (current) drug therapy; Z88.1 Allergy status to other antibiotic agents; Z88.2 Allergy status to sulfonamides; Z88.8 Allergy status to other drugs, medicaments and biological substances; Z88.0 Allergy status to penicillin; Z88.5 Allergy status to narcotic agent
CPT/HCPCS: 36415; 70450; 80053; 81001; 84484; 85025; 85027; 85610; 85730; 87077; 87086; 87147; 87186; 93005; 93010; 96365; 96372; 96376; 97116; 97161; 97165; 97530; 99285-25; G0378; J0696; J1650; J7030

== ENCOUNTER → 2019-02-05 | Outpatient (CLI) | payer OTHER ==
[~2019-02-05] MED LIST changes: +ENOX40I SC; +HYDRA25 PO; +LEVFLO500 PO
[2019-02-05 17:58] LABS: Appearance, Urine Hazy (Clear); Blood, Urine 2+ (Neg); Glucose Qualitative, Urine Neg (Neg); Ketones, Urine Neg (Neg); Leukocyte Esterase, Urine 2+ (Neg); Nitrite, Urine Pos (Neg); Protein, Urine 2+ (Neg); Urobilinogen, Urine 3+ (Normal)
[2019-02-05 18:47] LABS: Bilirubin, Urine 3+ (Neg); Color, Urine Orange (P-Yellow)
[2019-02-05 18:49] LABS: White Blood Cells, Urine 50-100 /hpf (0-5)
[2019-02-05 18:50] LABS: Bacteria Many /hpf; Squamous Epithelial Cells Few /hpf (Few)
== END | disposition home or self-care (01) ==
LOC: LAB SRC 15:33 → LAB SHORT 15:33
PROVIDERS: Registered Nurse
DX: R35.0 Frequency of micturition (principal); R39.15 Urgency of urination
CPT/HCPCS: 81001; 87077; 87086; 87186

== ENCOUNTER 2022-11-26 12:54 | Emergency (ER) | payer OTHER ==
[~2022-11-26] VITALS: Ht 190.5 cm; Wt 70.3 kg
[~2022-11-26 12:54] MED LIST changes: -ATOR40TA PO; +ATOR80 PO; +BENZ100A PO; +DULCOLAX400 MG/5 M PO; +HYDCHL25 PO; +LEVE500 PO; +LIPITOR80 MG PO; -MEMA10 PO; +MEMA5TAB PO; -Prinivil10 MG PO; +ZESTRIL40 M1 PO
[2022-11-26 14:00] LABS: Calcium, Ionized (POC) 1.18 mmol/L (1.10-1.46); Chloride (POC) 98 mmol/L (98-108); Creatinine (POC) 0.9 mg/dL (0.6-1.0); Glucose (ISTAT POC) 156 mg/dL (70-99); Hemoglobin (POC) 13.3 g/dL (12.0-16.0); Potassium (POC) 3.7 mmol/L (3.5-5.5); Sodium (POC) 136 mmol/L (135-148); Total CO2 (POC) 24 mmol/L (21-32)
[2022-11-26 14:18] LABS: BASOPHILS ABSOLUTE AUTO 0.05 K/mm3 (0.00-0.23); BASOPHILS PERCENT AUTO 1 % (0-2); EOSINOPHILS PERCENT AUTO 3 % (0-6); Hematocrit 37.9 % (33.0-51.0); Hemoglobin 13.3 g/dL (11.5-16.0); IMMATURE GRAN ABSOLUTE AUTO 0.05 K/mm3 (0.00-0.10); IMMATURE GRAN PERCENT AUTO 1 % (0-1); LYMPHOCYTES ABSOLUTE AUTO 1.34 K/mm3 (0.84-5.20); LYMPHOCYTES PERCENT AUTO 20 % (21-46); MONOCYTES ABSOLUTE AUTO 0.51 K/mm3 (0.16-1.47); MONOCYTES PERCENT AUTO 8 % (4-13); Mean Corpuscular HGB 31.3 pg (26.0-34.0); Mean Corpuscular HGB Conc 35.1 g/dL (31.5-36.5); Mean Corpuscular Volume 89 fL (80-100); Mean Platelet Volume 10.2 fL (9.1-12.4); NEUTROPHILS ABSOLUTE AUTO 4.59 K/mm3 (1.96-9.15); NEUTROPHILS PERCENT AUTO 68 % (41-73); Platelet Count 208 K/mm3 (150-400); RDW Coefficient Variation 12.7 % (11.7-14.2); RDW Standard Deviation 41.1 fL (35.1-46.3); Red Blood Cell Count 4.25 M/mm3 (3.80-5.20); White Blood Cell Count 6.74 K/mm3 (4.00-11.30)
[2022-11-26 14:22] LABS: Ethanol (Alcohol), Blood, Med <3 mg/dL
[2022-11-26 14:34] LABS: Alanine Aminotransfer (ALT/SGP 14 U/L (12-78); Albumin, Blood 3.4 g/dL (3.4-5.0); Albumin/Globulin Ratio 1.1 (0.8-1.8); Alk Phos 69 U/L (50-136); Anion Gap 6 mmol/L (6-16); Aspartate Aminotrans (AST/SGOT 32 U/L (12-37); Bilirubin, Total 0.7 mg/dL (0.1-1.0); Blood Urea Nitrogen 22 mg/dL (8-24); Bun/Creatinine Ratio 24.8 (12.0-20.0); CO2, Blood 27 mmol/L (21-32); Calcium, Blood 8.5 mg/dL (8.5-10.1); Chloride, Blood 103 mmol/L (98-108); Creatinine, Blood 0.89 mg/dL (0.40-1.00); Globulin, Blood 3.2 g/dL (2.2-4.0); Glomerular Filtration Rate 62 (60-); Glucose, Blood 162 mg/dL (70-99); Potassium, Blood 3.7 mmol/L (3.5-5.5); Sodium, Blood 136 mmol/L (136-145); Total Protein, Blood 6.6 g/dL (6.4-8.2)
[2022-11-26 15:53] VITALS: BP 185/88
== END 2022-11-26 16:26 | disposition home or self-care (01) ==
LOC: ER 12:54
PROVIDERS: Student in an Organized Health Care Education/Training Program
DX: E11.649 Type 2 diabetes mellitus with hypoglycemia without coma (principal); I10 Essential (primary) hypertension; G45.9 Transient cerebral ischemic attack, unspecified; F03.90 Unspecified dementia, unspecified severity, without behavioral disturbance, psychotic disturbance, mood disturbance, and anxiety; Z86.73 Personal history of transient ischemic attack (TIA), and cerebral infarction without residual deficits; Z86.718 Personal history of other venous thrombosis and embolism; Z88.0 Allergy status to penicillin; Z91.013 Allergy to seafood; Z88.2 Allergy status to sulfonamides; Z88.8 Allergy status to other drugs, medicaments and biological substances; Z88.1 Allergy status to other antibiotic agents; Z88.5 Allergy status to narcotic agent
CPT/HCPCS: 70450; 80047; 80053; 82947; 85014; 85025; 93005; 93010; 96374; 99285-25; A9270; G0480

== ENCOUNTER 2022-12-02 15:18 | Emergency (ER) | payer OTHER ==
[~2022-12-02] VITALS: Ht 162.6 cm; Wt 56.7 kg
[2022-12-02 16:41] LABS: BASOPHILS ABSOLUTE AUTO 0.04 K/mm3 (0.00-0.23); BASOPHILS PERCENT AUTO 1 % (0-2); EOSINOPHILS PERCENT AUTO 3 % (0-6); Hematocrit 37.3 % (33.0-51.0); Hemoglobin 13.2 g/dL (11.5-16.0); IMMATURE GRAN ABSOLUTE AUTO 0.02 K/mm3 (0.00-0.10); IMMATURE GRAN PERCENT AUTO 0 % (0-1); LYMPHOCYTES ABSOLUTE AUTO 1.67 K/mm3 (0.84-5.20); LYMPHOCYTES PERCENT AUTO 26 % (21-46); MONOCYTES ABSOLUTE AUTO 0.56 K/mm3 (0.16-1.47); MONOCYTES PERCENT AUTO 9 % (4-13); Mean Corpuscular HGB 31.7 pg (26.0-34.0); Mean Corpuscular HGB Conc 35.4 g/dL (31.5-36.5); Mean Corpuscular Volume 89 fL (80-100); Mean Platelet Volume 10.3 fL (9.1-12.4); NEUTROPHILS ABSOLUTE AUTO 3.89 K/mm3 (1.96-9.15); NEUTROPHILS PERCENT AUTO 61 % (41-73); Platelet Count 257 K/mm3 (150-400); RDW Coefficient Variation 12.8 % (11.7-14.2); RDW Standard Deviation 42.1 fL (35.1-46.3); Red Blood Cell Count 4.17 M/mm3 (3.80-5.20); White Blood Cell Count 6.38 K/mm3 (4.00-11.30)
[2022-12-02 16:56] LABS: Albumin, Blood 3.3 g/dL (3.4-5.0); Bilirubin, Total 0.6 mg/dL (0.1-1.0); Bun/Creatinine Ratio 16.7 (12.0-20.0); Calcium, Blood 8.3 mg/dL (8.5-10.1); Creatinine, Blood 0.72 mg/dL (0.40-1.00); Globulin, Blood 3.3 g/dL (2.2-4.0); Potassium, Blood 3.8 mmol/L (3.5-5.5); Total Protein, Blood 6.6 g/dL (6.4-8.2)
[2022-12-02 18:45] VITALS: BP 155/79
== END 2022-12-02 19:30 | disposition home or self-care (01) ==
LOC: ER 15:18
PROVIDERS: Student in an Organized Health Care Education/Training Program
DX: G45.9 Transient cerebral ischemic attack, unspecified (principal); R20.2 Paresthesia of skin; I10 Essential (primary) hypertension; Z88.0 Allergy status to penicillin; Z91.013 Allergy to seafood; Z88.1 Allergy status to other antibiotic agents; Z88.2 Allergy status to sulfonamides; Z88.5 Allergy status to narcotic agent; Z88.8 Allergy status to other drugs, medicaments and biological substances; Z79.899 Other long term (current) drug therapy
CPT/HCPCS: 70450; 80053; 82947; 85025; 93005; 93010; 99285-25; A9270

== ENCOUNTER 2023-06-07 19:25 | Emergency (ER) | payer OTHER ==
[~2023-06-07] VITALS: Ht 162.6 cm; Wt 68.0 kg
[~2023-06-07 19:25] MED LIST changes: +Fleet Enema132 ML PR; +Miralax17 GM PO
[2023-06-07 20:12] LABS: BASOPHILS ABSOLUTE AUTO 0.06 K/mm3 (0.00-0.23); BASOPHILS PERCENT AUTO 1 % (0-2); EOSINOPHILS ABSOLUTE AUTO 0.19 K/mm3 (0.00-0.68); EOSINOPHILS PERCENT AUTO 3 % (0-6); IMMATURE GRAN ABSOLUTE AUTO 0.02 K/mm3 (0.00-0.10); IMMATURE GRAN PERCENT AUTO 0 % (0-1); LYMPHOCYTES ABSOLUTE AUTO 1.85 K/mm3 (0.84-5.20); LYMPHOCYTES PERCENT AUTO 25 % (21-46); MONOCYTES ABSOLUTE AUTO 0.63 K/mm3 (0.16-1.47); MONOCYTES PERCENT AUTO 9 % (4-13); Mean Corpuscular HGB 31.3 pg (26.0-34.0); Mean Corpuscular Volume 90 fL (80-100); Mean Platelet Volume 9.7 fL (9.1-12.4); NEUTROPHILS ABSOLUTE AUTO 4.59 K/mm3 (1.96-9.15); NEUTROPHILS PERCENT AUTO 63 % (41-73); Platelet Count 258 K/mm3 (150-400); RDW Coefficient Variation 12.7 % (11.7-14.2); RDW Standard Deviation 41.8 fL (35.1-46.3); Red Blood Cell Count 4.47 M/mm3 (3.80-5.20); White Blood Cell Count 7.34 K/mm3 (4.00-11.30)
[2023-06-07 20:26] LABS: Albumin, Blood 3.3 g/dL (3.4-5.0); Albumin/Globulin Ratio 0.8 (0.8-1.8); Bilirubin, Total 0.6 mg/dL (0.1-1.0); Bun/Creatinine Ratio 21.3 (12.0-20.0); Calcium, Blood 8.4 mg/dL (8.5-10.1); Creatinine, Blood 1.08 mg/dL (0.40-1.00); Globulin, Blood 3.9 g/dL (2.2-4.0); Potassium, Blood 5.1 mmol/L (3.5-5.5); Total Protein, Blood 7.2 g/dL (6.4-8.2)
[2023-06-07 22:51] LABS: Source, Urine Clean Catch
[2023-06-07 22:56] LABS: Bilirubin, Urine Neg (Neg); Blood, Urine Neg (Neg); Glucose Qualitative, Urine Neg (Neg); Ketones, Urine Neg (Neg); Leukocyte Esterase, Urine 2+ (Neg); Nitrite, Urine Neg (Neg); Protein, Urine Neg (Neg); Urobilinogen, Urine NORM (Normal); pH, Urine 6.5 (5.0-8.0)
[2023-06-07 23:16] LABS: Appearance, Urine Clear (Clear); Color, Urine Yellow (P-Yellow)
[2023-06-07 23:17] LABS: Bacteria Rare /hpf; Red Blood Cells, Urine Not Seen /hpf (0-2); Squamous Epithelial Cells Rare /hpf (Few); Transitional Epithelial Cells Rare /hpf (0-Rare)
[2023-06-07 23:50] LABS: Influenza A, PCR NEGATIVE (NEGATIVE); Influenza B, PCR NEGATIVE (NEGATIVE); Resp Syncytial Virus, PCR NEGATIVE (NEGATIVE); SARS-Cov-2 (COVID-19) PCR, MMC NEGATIVE (NEGATIVE)
[2023-06-07 23:51] LABS: Albumin/Globulin Ratio 0.9 (0.8-1.8); Bilirubin, Total 0.6 mg/dL (0.1-1.0); Bun/Creatinine Ratio 22.1 (12.0-20.0); Calcium, Blood 8.3 mg/dL (8.5-10.1); Creatinine, Blood 1.04 mg/dL (0.40-1.00); Globulin, Blood 3.4 g/dL (2.2-4.0); Potassium, Blood 4.6 mmol/L (3.5-5.5); Total Protein, Blood 6.4 g/dL (6.4-8.2)
[2023-06-08 00:15] VITALS: BP 141/84
== END 2023-06-08 00:33 | disposition home or self-care (01) ==
LOC: ER 19:25
PROVIDERS: Emergency Medicine; Student in an Organized Health Care Education/Training Program
DX: K59.00 Constipation, unspecified (principal); R60.0 Localized edema; Z86.718 Personal history of other venous thrombosis and embolism; E11.9 Type 2 diabetes mellitus without complications; F03.90 Unspecified dementia, unspecified severity, without behavioral disturbance, psychotic disturbance, mood disturbance, and anxiety; Z86.73 Personal history of transient ischemic attack (TIA), and cerebral infarction without residual deficits; Z79.899 Other long term (current) drug therapy; Z88.0 Allergy status to penicillin; Z88.1 Allergy status to other antibiotic agents; Z88.2 Allergy status to sulfonamides; Z88.5 Allergy status to narcotic agent; Z88.8 Allergy status to other drugs, medicaments and biological substances; Z91.013 Allergy to seafood
CPT/HCPCS: 0241U; 71250; 74176; 80053; 81001; 83880; 84484; 85025; 87086; 94640; 94664; 99285-25; A9270